=== PATIENT | female | born 1960 | race Hispanic/Latino ===

== ENCOUNTER 2017-11-03 14:40 | Emergency (ER) | payer OTHER ==
[~2017-11-03] VITALS: Ht 152.4 cm; Wt 58.5 kg
[2017-11-03 14:54] VITALS: BP 115/76
[2017-11-03 15:04] LABS: ABSOLUTE BASOPHIL COUNT 0 /CUMM (0.0-0.2); ABSOLUTE EOSINOPHIL COUNT 0.1 /CUMM (0.0-0.7); ABSOLUTE GRANULOCYTE CT 6.1 /CUMM (1.4-6.5); ABSOLUTE LYMPH COUNT 2.2 /CUMM (1.2-3.4); BASOPHIL % 0.4 % (0.0-2.0); EOSINOPHIL % 1.6 % (0-5); GRANULOCYTE % 64.6 % (42.2-75.2); HEMATOCRIT 36.7 % (37-47); MEAN CORPUSCULAR HGB 30.8 PG (27.0-31.0); MEAN PLATELET VOLUME 8.1 FL (7.4-10.4); PLATELET COUNT 307 /CUMM (130-400); RBC DISTRIBUTION WIDTH 14.4 % (11.5-14.5); RED BLOOD CELL CT 4.17 /CUMM (4.20-5.40); WHITE BLOOD CELL COUNT 9.5 /CUMM (4.8-10.8)
--- NOTE | 2017-11-03 17:14 | ED CARDIAC/CP/PALPITATIONS ---
History of Present Illness General Chief Complaint: Chest Pain Stated Complaint: CHEST PAIN Source: patient Exam Limitations: no limitations Vital Signs & Intake/Output Vital Signs & Intake/Output Vital Signs Date Time Temp Pulse Resp B/P B/P Pulse O2 O2 Flow FiO2 Mean Ox Delivery Rate 11/03 1454 98.5 76 20 115/76 98 Room Air Allergies Uncoded Allergies: TYNEX (SEIZURE 11/03/17) Triage Note: PT TO ED C/O CHEST PAIN WITH COUGH. PT IS VISITING FROM [place]. HAS BEEN ON ABX FOR A KIDNEY INFECTION. STATES PRODUCTIVE COUGH. WENT TO URGENT CARE, HAD EKG AND SENT TO ED FOR FURTHER EVAL. Triage Nurses Notes Reviewed? yes HPI: 57yo female with hx of asthma, hiperlipidemia sent to ED from urgent care complaining of Past History Travel History Traveled to [place] past 21 day No Medical History Cardiovascular: hyperlipidemia Respiratory: asthma Cancer(s): thyroid cancer, uterine cancer Psychosocial History What is your primary language Uzbek Tobacco Use: Quit >30 days ago ETOH Use: denies use Illicit Drug Use: denies illicit drug use Progress Plan of Care: Orders Procedure Date/time Status TROPONIN LEVEL 11/03 1450 Complete COMPREHENSIVE METABOLIC PANEL 11/03 1450 Complete CBC WITHOUT DIFFERENTIAL 11/03 1450 Complete EKG 11/03 1442 Active Laboratory Tests 11/03/17 1455: Anion Gap 11, Estimated GFR > 60, BUN/Creatinine Ratio 22.9, Glucose 95, Calcium 9.0, Total Bilirubin 0.2, AST 16, ALT 23, Alkaline Phosphatase 107, Troponin I < 0.01, Total Protein 6.9, Albumin 4.0, Globulin 2.9, Albumin/Globulin Ratio 1.4, CBC w Diff NO MAN DIFF REQ, RBC 4.17 L, MCV 88.0, MCH 30.8, RDW 14.4, MPV 8.1, Gran % 64.6, Lymphocytes % 23.2, Monocytes % 10.2 H, Eosinophils % 1.6, Basophils % 0.4, Absolute Granulocytes 6.1, Absolute Lymphocytes 2.2, Absolute Monocytes 1.0 H, Absolute Eosinophils 0.1, Absolute Basophils 0, PUBS MCHC 35.0 Departure Departure Condition: Stable Referrals: Patient Has No Primary Care Dr (PCP/Family) Departure Forms: Customer Survey General Discharge Information
== END 2017-11-03 17:20 | disposition admitted as inpatient to this hospital (09) ==
LOC: ERH 14:40
PROVIDERS: Emergency Medicine
DX: R07.9 Chest pain, unspecified (principal); R05 Cough
CPT/HCPCS: 93005; 93010; 99281